=== PATIENT | female | born 1945 | race Caucasian/White ===

== ENCOUNTER 2019-02-13 15:20 | Outpatient (CLI) | payer MEDICARE, BC ==
--- NOTE | 2019-02-13 16:14 | RAD ---
TWO VIEWS OF THE ABDOMEN: 02/13/19 COMPARISON: None. HISTORY: Constipation and left sided abdominal pain. FINDINGS: Two views of the abdomen shows a nonspecific, nonobstructed bowel gas pattern. No free air or air-flu id levels are seen on upright examination. No significant stool retention is seen in the colon. IMPRESSION: Unremarkable exam. POS: [facility]
== END 2019-02-13 15:21 | disposition home or self-care (01) ==
LOC: SCSRAD 15:20
PROVIDERS: ATTEND Family Medicine
DX: K58.1 Irritable bowel syndrome with constipation (principal)
CPT/HCPCS: 74019

== ENCOUNTER 2019-02-20 08:26 | Outpatient (CLI) | payer MEDICARE, BC ==
--- NOTE | 2019-02-20 09:34 | CT ---
CT Abdomen Pelvis W Con History: K 57.1. Of bowel syndrome with constipation. Comparison: None. Findings: Some scarring in the right lower lobe with peripheral pleural tails loss small granulomas. No pericardial effusion. Liver, gallbladder, spleen, pancreas are all unremarkable. No dilated loops of large or small bowel. No free intraperitoneal gas or fluid. No retroperitoneal adenopathy. The appendix is visualized and is normal. No hydronephrosis. Adrenal glands are unremarkable. Mild narrowing of the celiac trunk from the arcua te ligament the diaphragm. There are multilevel circumferential disc osteophyte complexes causing neural foraminal and spinal canal narrowing. Impression: 1. 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 2. No acute inflammatory process within the abdomen or pelvis.
== END 2019-02-20 08:27 | disposition home or self-care (01) ==
LOC: CT 08:26
PROVIDERS: ATTEND Family Medicine
DX: K58.1 Irritable bowel syndrome with constipation (principal); I77.4 Celiac artery compression syndrome
CPT/HCPCS: 74177; 82565

== ENCOUNTER 2019-03-29 10:35 | Outpatient (CLI) | payer MEDICARE, BC ==
--- NOTE | 2019-03-29 12:05 | ULT ---
Pelvic ultrasound: 03/29/2019 COMPARISON: None HISTORY: Lower abdominal pain TECHNIQUE: Multiplanar grayscale sonographic imaging of the pelvis is obtained with transabdominal an d endovaginal imaging. The ovaries are assessed with color flow and spectral analysis FINDINGS: The endometrial canal is expanded and fluid filled, an abnormal appearance for a patient of this age. The expanded fluid-filled endometrial canal measures at least 1 cm in AP dimension. The endometrial thickness is thus difficult to measure as it is obscured by this fluid. The uterus measures 5.3 x 1.6 x 2.5 cm. Left ovary could not be visualized on this examination. The right ovary measures approximately 1.0 x 0.9 x 0.6 cm. No right ovarian lesion identified. IMPRESSION: Abnormal endometrial canal which is expanded and fluid filled. This could be related to m alignancy in a patient of this age. Trapped fluid within the endometrial canal associated with endocervical canal stenosis is a possibility. The pelvis could be best assessed via MRI. [employer] consultation is recommended CODE T
== END 2019-03-29 10:36 | disposition home or self-care (01) ==
LOC: BICULT 10:35
PROVIDERS: ATTEND Internal Medicine Gastroenterology
DX: R10.30 Lower abdominal pain, unspecified (principal); R63.4 Abnormal weight loss
CPT/HCPCS: 76856

== ENCOUNTER 2019-06-05 11:17 | Outpatient (CLI) | payer MEDICARE, BC | END 2019-06-05 11:18 | disposition home or self-care (01) | LOC: CTENTCT 11:17 | PROVIDERS: ATTEND Otolaryngology Plastic Surgery within the Head & Neck | DX: J01.91 Acute recurrent sinusitis, unspecified (principal) | CPT/HCPCS: 70486 ==

== ENCOUNTER 2020-05-14 10:26 | Outpatient (CLI) | payer MEDICARE, BC ==
--- NOTE | 2020-05-14 11:05 | RAD ---
EXAM: Single view of the abdomen HISTORY: Chronic constipation COMPARISON: None FINDINGS: Single view of the abdomen shows a nonspecific, nonobstructive bowel gas pattern. No suspi cious calcifications are seen. Degenerative changes are seen in the spine. IMPRESSION: Unremarkable exam
== END 2020-05-14 10:27 | disposition home or self-care (01) ==
LOC: BICRAD 10:26
PROVIDERS: ATTEND Physician Assistant Medical
DX: K59.09 Other constipation (principal)
CPT/HCPCS: 74018